=== PATIENT | female | born 1955 | race American Indian/Alaskan Native ===

== ENCOUNTER 2017-04-11 21:18 | Emergency (ER) | payer MEDICARE, OTHER ==
[2017-04-11] MEDS ORDERED: MOTRIN ONE (23:10)
--- NOTE | 2017-04-11 23:30 | Emergency Department Report ---
ED Animal Bite HPI - General Chief Complaint: Animal Bite Stated Complaint: ANIMAL BITE Time Seen by Provider: 04/11/17 22:46 Source: patient Mode of arrival: Ambulatory Limitations: No Limitations - History of Present Illness Initial Comments: 61-year-old female past medical history hypertension, chronic lower extremity swelling, onychomycosis, sickle cell trait presents with concern for possible rat bite to right heel. Patient states that 2 days ago while sleeping she felt a slightly painful sensation in her right heel and believes that a rat had bitten her heel while she was sleeping overnight. Patient has small visible abrasion to right distal heel. Denies any other injuries. No visible erythema or purulent drainage at site of right heel. Patient is ambulating without significant difficulty denies fevers or chills. Patient is ambulating without difficulty and denies any significant pain at site of abrasion/possible bite. Onset/Timin -: days(s) Right: Foot (right heel) Animal: rodent (possible rat bite) Mechanism: bite, scratch Severity scale (0 -10): 1 Associated Symptoms: other (small break in skin) - Related Data Patient Tetanus UTD: Yes (2008 or 2009 as per pt) Home Medications Medication Instructions Recorded Confirmed Last Taken Cholecalciferol (Vitd3)/Vit K2 [D3 2,000 each PO DAILY 02/27/13 02/27/13 01:00 + K2 Dots 1,000 Units Tab] Hydrochlorothiazide [Hctz] 12.5 mg PO QDAY 02/27/13 02/27/13 02/26/13 01:00 Potassium Chloride [Klor-Con M10] 10 meq PO 02/27/13 02/27/13 02/26/13 01:00 amLODIPine [Norvasc] 5 mg PO DAILY 02/27/13 02/27/13 02/26/13 01:00 Previous Rx's Medication Instructions Recorded Last Taken Type Triamter/Hctz 37.5-25 mg 1 tab PO QDAY #30 tablet 02/27/13 Unknown Rx [Maxzide-25] Amoxicillin [Amoxicillin TAB] 875 mg PO BID #20 tablet 08/07/15 Unknown Rx Hydrocodone/Ibuprofen [Vicoprofen 1 each PO Q4-6H PRN #20 tablet 08/07/15 Unknown Rx 7.5-200 mg TAB] Cephalexin [Keflex] 500 mg PO BID #14 capsule 04/11/17 Unknown Rx Ibuprofen [Motrin] 400 mg PO Q8H PRN #20 tablet 04/11/17 Unknown Rx Mupirocin [Bactroban 2% CREAM] 1 applicatio TP TID #1 cream 04/11/17 Unknown Rx Allergies Allergy/AdvReac Type Severity Reaction Status Date / Time acetaminophen [From Tylenol] Allergy Unknown Verified 02/27/13 00:21 quinine [Quinine] Allergy Itching Verified 02/27/13 00:21 ED Review of Systems ROS: Stated complaint: ANIMAL BITE Other details as noted in HPI Constitutional: denies: chills, fever Eyes: denies: eye pain, eye discharge, vision change ENT: denies: ear pain, throat pain Respiratory: denies: cough, shortness of breath, wheezing Cardiovascular: denies: chest pain, palpitations Endocrine: no symptoms reported Gastrointestinal: denies: abdominal pain, nausea, diarrhea Genitourinary: denies: urgency, dysuria, discharge Musculoskeletal: as per HPI (chronically swollen legs bilaterally as per patient ). denies: back pain, joint swelling, arthralgia Skin: denies: rash, lesions Neurological: denies: headache, weakness, paresthesias Psychiatric: denies: anxiety, depression Hematological/Lymphatic: denies: easy bleeding, easy bruising ED Past Medical Hx - Past Medical History Hx Hypertension: Yes Additional medical history: stress urgency sickle cell trait - Social History Smoking Status: Never Smoker Substance Use Type: None - Medications Home Medications: Home Medications Medication Instructions Recorded Confirmed Last Taken Type Cholecalciferol (Vitd3)/Vit K2 [D3 2,000 each PO DAILY 02/27/13 02/27/13 01:00 History + K2 Dots 1,000 Units Tab] Hydrochlorothiazide [Hctz] 12.5 mg PO QDAY 02/27/13 02/27/13 02/26/13 01:00 History Potassium Chloride [Klor-Con M10] 10 meq PO 02/27/13 02/27/13 02/26/13 01:00 History Triamter/Hctz 37.5-25 mg 1 tab PO QDAY #30 tablet 02/27/13 Unknown Rx [Maxzide-25] amLODIPine [Norvasc] 5 mg PO DAILY 02/27/13 02/27/13 02/26/13 01:00 History Amoxicillin [Amoxicillin TAB] 875 mg PO BID #20 tablet 08/07/15 Unknown Rx Hydrocodone/Ibuprofen [Vicoprofen 1 each PO Q4-6H PRN #20 tablet 08/07/15 Unknown Rx 7.5-200 mg TAB] Cephalexin [Keflex] 500 mg PO BID #14 capsule 04/11/17 Unknown Rx Ibuprofen [Motrin] 400 mg PO Q8H PRN #20 tablet 04/11/17 Unknown Rx Mupirocin [Bactroban 2% CREAM] 1 applicatio TP TID #1 cream 04/11/17 Unknown Rx ED Physical Exam - General Limitations: No Limitations General appearance: alert, in no apparent distress - Head Head exam: Present: atraumatic, normocephalic - Eye Eye exam: Present: normal appearance - ENT ENT exam: Present: mucous membranes moist - Neck Neck exam: Present: normal inspection - Respiratory Respiratory exam: Present: normal lung sounds bilaterally. Absent: respiratory distress - Cardiovascular Cardiovascular Exam: Present: regular rate, normal rhythm. Absent: systolic murmur, diastolic murmur, rubs, gallop - GI/Abdominal GI/Abdominal exam: Present: soft, normal bowel sounds - Extremities Exam Extremities exam: Present: normal inspection - Expanded Lower Extremity Exam Right Ankle exam: Present: normal inspection, full ROM, swelling (+1 edema right foot/ ankle. Patient states that this is chronic. This is not something new as per patient.) Foot/Toe exam: Present: normal inspection, abrasion (pt has small abrasion less than 1 cm and posterior aspect of right heel.) Neuro vascular tendon exam: Present: no vascular compromise (distal dorsalis pedis and posterior tibial pulses are intact.) Gait: Positive: observed and normal 1 - 1-2 small less than 1 cm abrasions here - Back Exam Back exam: Present: normal inspection - Neurological Exam Neurological exam: Present: alert, oriented X3, CN II-XII intact, normal gait - Psychiatric Psychiatric exam: Present: normal affect, normal mood - Skin Skin exam: Present: warm, dry, intact, normal color. Absent: rash ED Course Vital Signs 04/11/17 21:56 Temperature 98.9 F Pulse Rate 70 Respiratory 18 Rate Blood Pressure 187/102 O2 Sat by Pulse 97 Oximetry Critical care attestation.: If time is entered above; I have spent that time in minutes in the direct care of this critically ill patient, excluding procedure time. Critical Care Time: A/P: Possible rat bite to right foot 1- no need to prophylax against rabies as pt states this may have been a rat bite [email or web address] 2-Keflex 500 twice a day 7 days 3-Motrin when necessary for pain 4-bacitracin ointment 5- I advised the patient's return to the ED for any fevers chills. When drainage from site and/or as erythema at site or difficulty walking. Patient does not have any signs of cellulitis or foot abscess at this time on the clinical exam. ED Disposition Clinical Impression: Abrasion Animal bite of foot Qualifiers: Encounter type: initial encounter Laterality: right Qualified Code(s): S91.351A - Open bite, right foot, initial encounter Disposition: - TO HOME OR SELFCARE Is pt being admited?: No Does the pt Need Aspirin: No Condition: Stable Instructions: Animal Bite (ED), Abrasion (ED) Prescriptions: Cephalexin [Keflex] 500 mg PO BID #14 capsule Ibuprofen [Motrin] 400 mg PO Q8H PRN #20 tablet PRN Reason: Pain Mupirocin [Bactroban 2% CREAM] 1 applicatio TP TID #1 cream Referrals: NORMAN BASILIO DPM [Staff Physician] - 3-5 Days Time of Disposition: 23:30
[2017-04-11] MEDS ORDERED: KEFLEX PO ONE (23:34)
[2017-04-11 23:57] VITALS: BP 158/97
== END 2017-04-11 23:57 | disposition home or self-care (01) ==
LOC: ED 21:18
DX: S91.351A Open bite, right foot, initial encounter (principal); Z88.6 Allergy status to analgesic agent; Z88.8 Allergy status to other drugs, medicaments and biological substances; W53.11XA Bitten by rat, initial encounter; Y93.89 Activity, other specified; Y99.9 Unspecified external cause status; Y92.89 Other specified places as the place of occurrence of the external cause
CPT/HCPCS: 99282